=== PATIENT | female | born 1965 | race African-American/Black ===

== ENCOUNTER → 2020-07-25 | Outpatient (CLI) | payer MEDICARE, MEDICAID | END | disposition home or self-care (01) | LOC: CT 07:48 | PROVIDERS: ATTEND Internal Medicine Nephrology | DX: M16.11 Unilateral primary osteoarthritis, right hip (principal); M46.1 Sacroiliitis, not elsewhere classified; M25.851 Other specified joint disorders, right hip; M47.812 Spondylosis without myelopathy or radiculopathy, cervical region; M85.88 Other specified disorders of bone density and structure, other site | CPT/HCPCS: 72040; 73502; 73700 ==

== ENCOUNTER → 2021-07-28 | Outpatient (CLI) | payer MEDICARE, MEDICAID ==
[2021-07-28 08:15] LABS: BASOPHILS % 0.8 % (0.0-2.0); EOSINOPHILS % 1.4 % (0.0-5.0); HEMATOCRIT. 35.4 % (36.0-48.0); HEMOGLOBIN. 11.5 g/dL (12.0-16.0); LYMPHOCYTES % 27.8 % (20.0-50.0); MEAN CORPUSCULAR HEMOGLOBIN 29.8 pg (28.0-32.0); MONOCYTES % 11.5 % (2.0-8.0); NEUTROPHILS % 58.5 % (40.0-76.0); PLATELET 241 x1000/uL (130-400); RED BLOOD CELL COUNT 3.85 mill/uL (4.2-5.4); RED CELL DISTRIBUTION WIDTH 12.4 % (11.6-14.6)
[2021-07-28 08:25] LABS: CHLORIDE 108 mEq/L (98-107)
[2021-07-28 08:32] LABS: PHOSPHORUS 3.9 mg/dL (2.5-4.9)
[2021-07-28 09:15] LABS: VITAMIN B12 SERUM 1239 pg/mL (211-911)
== END | disposition home or self-care (01) ==
LOC: LAB 07:33
PROVIDERS: ATTEND Internal Medicine Nephrology
DX: I50.22 Chronic systolic (congestive) heart failure (principal); D64.9 Anemia, unspecified; M32.9 Systemic lupus erythematosus, unspecified; R31.9 Hematuria, unspecified
CPT/HCPCS: 36415; 80053; 82607; 83735; 84100; 85025; 85044

== ENCOUNTER → 2022-06-01 | Outpatient (CLI) | payer MEDICARE, MEDICAID ==
[2022-06-01 10:30] LABS: BASOPHILS % 0.5 % (0.0-2.0); EOSINOPHILS % 1.1 % (0.0-5.0); HEMATOCRIT. 35.8 % (36.0-48.0); HEMOGLOBIN. 11.7 g/dL (12.0-16.0); LYMPHOCYTES % 19.8 % (20.0-50.0); MEAN PLATELET VOLUME 6.8 fl (7.4-10.4); MONOCYTES % 9.9 % (2.0-8.0); NEUTROPHILS % 68.7 % (40.0-76.0); PLATELET 246 x1000/uL (130-400); RED BLOOD CELL COUNT 3.89 mill/uL (4.2-5.4); RED CELL DISTRIBUTION WIDTH 12.5 % (11.6-14.6)
[2022-06-01 10:35] LABS: CHLORIDE 104 mEq/L (98-107)
[2022-06-01 10:49] LABS: C REACTIVE PROTEIN QUANT 0.3 mg/L (0.0-3.0); PHOSPHORUS 3.6 mg/dL (2.5-4.9); TOTAL IRON BINDING CAPACITY 333 ug/dL (250-450)
[2022-06-02 06:20] LABS: VITAMIN D 25-OH 41.5 ng/mL (30.0-100.0)
[2022-06-03 13:10] LABS: ATYPICAL P-ANCA <1:20 titer (Neg:<1:20); CYTOPLASMIC C-ANCA <1:20 titer (Neg:<1:20); PERINUCLEAR P-ANCA <1:20 titer (Neg:<1:20)
[2022-06-03 19:10] LABS: ANTI-MYELOPEROXIDASE AB < 0.2 units (0.0-0.9); ANTI-PROTEINASE 3 ABS < 0.2 units (0.0-0.9)
[2022-06-04 08:07] LABS: ANA IFA Negative (.)
== END | disposition home or self-care (01) ==
LOC: LAB 09:37
PROVIDERS: ATTEND Internal Medicine Nephrology
DX: Z13.1 Encounter for screening for diabetes mellitus (principal); D50.9 Iron deficiency anemia, unspecified; K50.10 Crohn's disease of large intestine without complications; M32.9 Systemic lupus erythematosus, unspecified; I42.9 Cardiomyopathy, unspecified; R31.9 Hematuria, unspecified; E55.9 Vitamin D deficiency, unspecified; M25.50 Pain in unspecified joint; I11.0 Hypertensive heart disease with heart failure
CPT/HCPCS: 36415; 80053; 82306; 82728; 83036; 83520; 83540; 83550; 83735; 84100; 84436; 84443; 84550; 85025; 85651; 86140; 86256